=== PATIENT | male | born 1975 | race Caucasian/White ===

== ENCOUNTER 2018-01-05 03:11 | Outpatient (CLI) | payer BC | END 2018-01-05 23:59 | disposition home or self-care (01) | LOC: DIABETIC 03:11 | PROVIDERS: ATTEND Nurse Practitioner | DX: E11.9 Type 2 diabetes mellitus without complications (principal) | CPT/HCPCS: G0108 ==

== ENCOUNTER 2018-02-11 02:31 | Outpatient (CLI) | payer BC | END 2018-02-11 23:59 | disposition home or self-care (01) | LOC: DIABETIC 02:31 | PROVIDERS: ATTEND Nurse Practitioner | DX: E11.9 Type 2 diabetes mellitus without complications (principal); I10 Essential (primary) hypertension; Z88.1 Allergy status to other antibiotic agents; Z88.4 Allergy status to anesthetic agent; Z88.8 Allergy status to other drugs, medicaments and biological substances | CPT/HCPCS: G0108 ==